=== PATIENT | male | born 1955 | race Caucasian/White ===

== ENCOUNTER 2017-12-17 14:16 | Emergency (ER) | payer MEDICARE ==
[~2017-12-17] VITALS: Ht 182.9 cm; Wt 100.0 kg
[~2017-12-17 14:16] MED LIST: AMLO10TA2; BENA40TA; CARB200T; DIAZ10TA; GABA800T; JANU50TA8; LEVO75TA3; NAPR500T2; OMEP40CA2; OXYC1TAB36; PRAV80TA2; TAMS0.4C4; [UNRECOGNIZED DRUG - CODE] PO
[2017-12-17 14:20] VITALS: BP 143/69; PULSE 72; RESP 15; TEMP 98.5; O2SAT 97
[2017-12-17] MEDS ORDERED: PRED10PA2 PO (15:58)
[2017-12-17] MEDS ORDERED: VENTAER INH (15:58)
--- NOTE | 2017-12-17 15:58 | PD ---
HPI . Chest congestion Chief Complaint: Cold / Flu Symptoms Time Seen by Provider: 15:26 Travel History International Travel<30 days: No Contact w/Intl Traveler<30days: No Traveled to known affect area: No History of Present Illness HPI This patient presents with chief complaint of chest congestion with green purulent sputum. Onset was 3 days ago. Symptoms are exacerbated by lying down. Symptoms have been unrelieved by vitamin C, DayQuil and NyQuil. Or throat, sinus congestion and headache. His is here with virtually the same thing. This patient denies any previous history of lung problems such as asthma or emphysema. PFSH Past Medical History High Cholesterol: Yes Diabetes: Yes Patient Takes Glucophage: Yes Hypertension: Yes Past Surgical History Appendectomy: Yes Social History Alcohol Use: No Tobacco Use: Yes Substance Use: No Allergies-Medications (Allergen,Severity, Reaction): Coded Allergies: No Known Allergies (Unverified Adverse Reaction, Unknown, 12/17/17) Reported Meds & Prescriptions Reported Meds & Active Scripts Active Reported Levothyroxine (Levothyroxine Sodium) 75 Mcg Tab Naproxen 500 Mg Tab Amlodipine (Amlodipine Besylate) 10 Mg Tab Omeprazole 40 Mg Cap Gabapentin 800 Mg Tab Tamsulosin (Tamsulosin HCl) 0.4 Mg Cap Benazepril (Benazepril HCl) 40 Mg Tab Carbamazepine 200 Mg Tab Oxycodone-Acetaminophen 10-325 mg Tab Janumet (Sitagliptin-Metformin) 50-1,000 Mg Tab Pravastatin 80 Mg Tab Arymo ER (Morphine Sulfate) 30 Mg Tab.po.er 10 Mg PO Diazepam 10 Mg Tab Review of Systems Except as stated in HPI: all other systems reviewed are Neg General / Constitutional: No: Fever, Chills HENT: Positive: Headaches, Sore Throat, Congestion Respiratory: Positive: Cough, Wheezing Physical Exam Narrative GENERAL: Well-appearing older man who is lying on the stretcher in no acute distress. SKIN: Warm and dry. HEAD: Normocephalic/atraumatic. EYES: Pupils are equal. Extraocular movements are intact. ENT: Oropharynx has no significant erythema. There is no tonsillar enlargement or exudate. NECK: Normal range of motion. Supple. No cervical lymphadenopathy. CARDIOVASCULAR: Regular rate and rhythm. Heart sounds are normal. RESPIRATORY: Nonlabored respirations. Good air movement but diffuse coarse expiratory wheezing. MUSCULOSKELETAL: Atraumatic. NEUROLOGICAL: Nonfocal. PSYCHIATRIC: Appropriate mood and affect. Data Data Last Documented VS Vital Signs Date Time Temp Pulse Resp B/P (MAP) Pulse Ox O2 Delivery O2 Flow Rate FiO2 12/17/17 14:20 98.5 72 15 143/69 (93) 97 MDM Medical Decision Making Medical Screen Exam Complete: Yes Emergency Medical Condition: Yes Differential Diagnosis Differential diagnosis includes but is not limited to viral respiratory illness , bronchitis, pneumonia, allergies, CHF, asthma/COPD. Narrative Course This patient presents with a cough. On exam, he has bronchitis. He will be treated with steroids and an MDI. I will also suggest guaifenesin. Diagnosis Primary Impression: Bronchitis Patient Instructions: Acute Bronchitis (DC), General Instructions Additional Instructions: You have bronchitis which is usually a viral infection. The most effective treatment for bronchitis and steroids. You will also be prescribed an inhaler. You should take guaifenesin 1200 mg twice daily. This will help to loosen your secretions. You can expect persistent cough for up to 4-6 weeks. I recommend that she plan to follow-up with your primary care doctor. Med/Other Pt SpecificInfo: Prescription(s) given Scripts Albuterol 18 GM Inh (Ventolin Hfa 18 GM Inh) 90 Mcg/Act Aer 2 PUFF INH Q4H Y for SHORTNESS OF BREATH, #1 INHALER 0 Refills Prov: Thi George MD 12/17/17 Prednisone (48) 10 mg tab Dose Pack (Prednisone (48) 10 mg tab Dose Pack) 10 Mg Dspk 10 MG PO DIRECTED for Inflammation, #1 DSPK 0 Refills Prov: Thi George MD 12/17/17 Disposition: 01 DISCHARGE HOME Condition: Stable Thi George MD Dec 17, 2017 15:58
== END 2017-12-17 16:29 | disposition home or self-care (01) ==
LOC: NEPD 14:16 → EDSEX 14:16 → NEPD 16:29
DX: J40 Bronchitis, not specified as acute or chronic (principal); E11.9 Type 2 diabetes mellitus without complications; E78.00 Pure hypercholesterolemia, unspecified; I10 Essential (primary) hypertension; Z72.0 Tobacco use
CPT/HCPCS: 99283